=== PATIENT | female | born 1945 | race Caucasian/White ===

== ENCOUNTER → 2017-07-14 | Outpatient (CLI) | payer OTHER | LOC: FIMAGING 13:53 | PROVIDERS: ATTEND Internal Medicine | DX: Z12.31 Encounter for screening mammogram for malignant neoplasm of breast (principal); Z85.3 Personal history of malignant neoplasm of breast; Z80.3 Family history of malignant neoplasm of breast | CPT/HCPCS: G0202 ==

== ENCOUNTER → 2018-03-05 | Outpatient (CLI) | payer OTHER, MEDICARE | LOC: FIMAGING 14:06 | PROVIDERS: ATTEND Internal Medicine | DX: Z13.820 Encounter for screening for osteoporosis (principal); M81.0 Age-related osteoporosis without current pathological fracture ==

== ENCOUNTER → 2018-08-02 | Outpatient (CLI) | payer OTHER, MEDICARE | LOC: FIMAGING 13:31 | PROVIDERS: ATTEND Internal Medicine | DX: Z12.31 Encounter for screening mammogram for malignant neoplasm of breast (principal); R92.8 Other abnormal and inconclusive findings on diagnostic imaging of breast; Z80.3 Family history of malignant neoplasm of breast ==

== ENCOUNTER → 2018-08-15 | Outpatient (CLI) | payer OTHER, MEDICARE | LOC: BMCIMAGING 10:59 | PROVIDERS: ATTEND Nurse Practitioner Adult Health | DX: R92.8 Other abnormal and inconclusive findings on diagnostic imaging of breast (principal); Z80.3 Family history of malignant neoplasm of breast ==